=== PATIENT | female | born 1975 | race Caucasian/White ===

== ENCOUNTER 2021-03-18 12:26 | Outpatient (CLI) | payer OTHER, SELFPAY ==
--- NOTE | ~2021-03-18 | US_ITS ---
EXAMINATION: US pelvic complete w TV DATE: 03/18/2021 13:13 INDICATION: Excessive and frequent menstruation TECHNIQUE: Multiple transabdominal and endovaginal sonographic images of the pelvis were obtained. COMPARISON: None. FINDINGS: The uterus measures 8.5 x 4.5 x 6.2 cm. The endometrial complex measures 11 mm. The right o vary measures 3.5 x 2.5 x 2.4 cm. The left ovary measures 2.8 x 2.7 x 2.8 cm. There is normal vascula r flow in the ovaries. There is no free fluid in the pelvis. IMPRESSION: 1. No sonographic correlate for the patient's symptoms. Reviewed, dictated and finalized at location F. AIGN ASSOCIATE
== END 2021-03-18 12:27 | disposition home or self-care (01) ==
LOC: ANHIMG 12:34
PROVIDERS: PCP Internal Medicine; Visit Provider Obstetrics & Gynecology
DX: N92.1 Excessive and frequent menstruation with irregular cycle (principal)
CPT/HCPCS: 76830; 76856

== ENCOUNTER 2022-03-24 12:24 | Outpatient (CLI) | payer OTHER, SELFPAY ==
[2022-03-24 13:49] LABS: Hematocrit 39.7 % (37.0-47.0); Hemoglobin 12.8 g/dL (12.0-15.0); Mean Corpuscular HGB Conc 32.2 g/dl (32-36); Mean Corpuscular Hemoglobin 30.5 pg (26-34); Mean Corpuscular Volume 94.5 fl (80-100); Mean Platelet Volume 10.5 fl (7.4-10.4); Platelet Count Result 300 k/mm3 (150-375); Red Cell Distribution Width 14.9 % (11.5-14.5)
[2022-03-28 12:13] LABS: FSH 6.3 mIU/mL (***); LH 4.8 mIU/mL (***); Progesterone 0.7 ng/mL (***)
== END 2022-03-24 12:25 | disposition home or self-care (01) ==
LOC: ANHLAB 12:27
PROVIDERS: PCP Internal Medicine; Visit Provider Obstetrics & Gynecology
DX: N92.1 Excessive and frequent menstruation with irregular cycle (principal)
CPT/HCPCS: 36415; 83001; 83002; 84144; 85027

== ENCOUNTER 2022-05-14 01:49 | Day surgery (SDC) | payer OTHER, SELFPAY ==
[2022-05-03 12:59] VITALS: BMI 22.0
--- NOTE | 2022-05-03 13:04 | PC.NURSE ---
Report to the Outpatient Waiting Room, entrance under the green pavilion located off [facility], at time 0600 on date 05/14/22. Planned Procedure Time: 0730. Time changes happen often and if your time is changed the preop area will call you the afternoon before. - You and your visitor will be asked to self-screen and do not enter if you have any COVID symptoms. - Only one visitor is requested with a max of two and NO children visitors are allowed at this time. - The patient visitor may be requested to leave or wait in car when not with patient due to distancing restrictions. - A mask is optional within the hospital at this time. Patients may have clear liquids (water, carbonated beverages, clear teas, apple juice) until 3 hours prior to surgery with a maximum of 20 ounces. - No food from midnight until time of surgery Take the following medications with a SIP of water the morning of surgery: NONE DO NOT STOP ANY OF YOUR OTHER PRESCRIPTION MEDICATIONS PRIOR TO SURGERY EXCEPT THE FOLLOWING Medications to discontinue per physician: VITAMIN Date to take last dose: 05/10/22 Please no make-up, nail wolof, hairspray, perfume, deodorant, or body powder the day of surgery. No jewelry (including any body piercings) or valuables the day of surgery, leave them at home. Please take a shower or bath the night before, or the morning of, surgery with an antibacterial soap. Wear comfortable, loose fitting clothing. - Jewelry must be removed prior to entering the operating room. Rings and piercings that are not removed may be cut off. - The hospital will not accept responsibility for valuables. - Please leave all valuables, including medications, at home the day of surgery. If you are going home after surgery, a licensed drivers license examiner must drive you home. - NO public transportation without another adult if you receive anesthesia. - We recommend that an adult stay with you for 24 hours following discharge. - We also recommend that you do not drive, make important decision, drink alcoholic beverages, or take any drugs that were not prescribed by your health care provider for at least 24 hours after your discharge time. Follow any additional instructions given to you from your surgeon. If you or anyone in your household have experienced Covid symptoms in the past week, please notify your surgeon or the nurse liaison at the phone number below for possible testing. Telephone instructions given to PT - LARA GRANT and asked if any additional questions and then verbalized understanding. Patient advised to call surgeon office or pre surgery nurse liaison [phone] if any additional questions.
--- NOTE | 2022-05-13 13:53 | WPDANESEPPF ---
Anes - Initial Pre Proc Eval Procedure: Operation Date: 05/14/22 07:30 Proposed Procedures p Hysteroscopy, Dilation and Curettage, Sharita Endometrial Ablation with Possible Fibroid Removal - Ata Owens MD Date/Time: 05/13/22 13:53 Surgeon: Ata Owens MD Pre Op Diagnosis: abnormal uterine and vaginal bleeding Patient Data Age: 46 Gender: F Height: 1.73 m Weight: 65.8 kg Allergies Allergy/AdvReac Type Severity Reaction Status Date / Time No Known Allergies Allergy Verified 05/14/22 06:58 Home Medications Medication Instructions Recorded Confirmed Type multivitamin 1 tablet PO DAILY 03/10/21 05/14/22 History progesterone micronized 200 mg 200 mg PO QHS #30 caps 04/16/22 05/14/22 Rx capsule (Prometrium) Patient hx anesthesia problems: none Family hx anesthesia problems: none Results Review: All pre-operative results and documents have been reviewed as part of the pre-operative evaluation. FORMERLY [facility] Past Medical History Medical History Acid reflux Elective x1 Missed x2 Vaginal delivery x2 Surgical History Surgical History History of bilateral tubal ligation 2013 History of cholecystectomy 2008 History of dilation and curettage 2008 History of hernia repair 1990 History of laparoscopy 2008, exploratory [place] teeth extracted 2006 Family History Family History Grandparent Carcinoma of colon Family history of malignant neoplasm of breast Family history of malignant neoplasm of ovary, Onset Age: 80 Cerebrovascular accident Social History Social History Smoking packs per day: 1 Smoking cigarettes per day: 20.0 Years smoked: 10 Smoking pack-years: 10.00 Smoking status: Former smoker Tobacco type: cigarettes Smoking end date: 03/21/02 Alcohol intake: current Alcohol use details: 2/MONTH Substance use: never Substance use type: does not use Last use: age 19? Lack of Transportation: No Lack of Food: Never True Current Housing: I Have Housing Concerned About Future Housing: No Difficulty Paying Gas/Electric Bills: No Difficulty Paying for Meds: No Currently Unemployed: No Education: Master's Degree or Higher Living arrangements: with family Spiritual care concerns: No Agree to blood products: Yes Zehras - Richie Final PreProcedure Day of Procedure 05/13/22 13:53 Patient weight: normal Heart: regular rate and rhythm Lungs: clear to auscultation Neurological: alert and oriented Last oral intake: >/= 8 hours ASA classification: II Emergent: no Anesthetic plan: proceed Anesthesia type and monitoring: general GIVS and standard monitoring Results Review: All pre-operative results and documents have been reviewed as part of the pre-operative evaluation. Informed Consent: The patient's anesthetic plan and its attendant risks and benefits were discussed with the patient/family/POA. Questions were solicited and answers provided to the satisfaction of the patient/family/POA.
[2022-05-14 06:34] VITALS: BP 127/71; PULSE 84; RESP 16; TEMP 36.6; O2SAT 99
[2022-05-14] MEDS: LACTATED RINGERS 1,000 ML 30 ML IV CONT (06:47)
[2022-05-14] MEDS: ACETAMINOPHEN 500 MG TABLET 1000 MG PO (06:48)
--- NOTE | 2022-05-14 07:12 | PM.IMHP ---
H&P: HPI History of Present Illness Date/Time: 05/14/22 07:12 Chief Complaint: Heavy periods Narrative: Patient with history of heavy periods. Not resolved with hormonal contraception therapy. Endometrial biopsy normal. She has been given options of treatment and has opted for endometrial ablation, hysteroscopy, possible D and C possible removal of endometrial lesion if present. Review of Systems Review of Systems: All systems reviewed & are unremarkable except as noted in HPI and below Constitutional: Constitutional: Reports no additional constitutional complaints Eyes: Eyes: Reports no additional eye complaints Cardiovascular: Cardiovascular: Reports no additional cardiovascular complaints Respiratory: Respiratory: Reports no additional respiratory complaints Gastrointestinal: Gastrointestinal: Reports no additional gastrointestinal complaints Genitourinary: Genitourinary: Reports no additional female genitourinary complaints and Reports as per HPI Integumentary/Breasts: Skin/Breast: Reports system reviewed and no additional complaints, except as docu Neurologic: Reports system reviewed and no additional complaints, except as documented Psychiatric: Psychiatric: Reports no additional psychiatric complaints Hematologic/Lymphatic: Hematologic/Lymphatic: Reports no additional hematologic/lymphatic complaints [facility] Past Medical History Medical History Acid reflux Elective x1 Missed x2 Vaginal delivery x2 Surgical History Surgical History History of bilateral tubal ligation 2013 History of cholecystectomy 2008 History of dilation and curettage 2009 History of hernia repair 1990 History of laparoscopy 2007, exploratory [place] teeth extracted 2006 Family History Family History Grandparent Carcinoma of colon Family history of malignant neoplasm of breast Family history of malignant neoplasm of ovary, Onset Age: 80 Cerebrovascular accident Social History Social History Smoking packs per day: 1 Smoking cigarettes per day: 20.0 Years smoked: 10 Smoking pack-years: 10.00 Smoking status: Former smoker Tobacco type: cigarettes Smoking end date: 03/21/02 Alcohol intake: current Alcohol use details: 2/MONTH Substance use: never Substance use type: does not use Last use: age 19? Lack of Transportation: No Lack of Food: Never True Current Housing: I Have Housing Concerned About Future Housing: No Difficulty Paying Gas/Electric Bills: No Difficulty Paying for Meds: No Currently Unemployed: No Education: Master's Degree or Higher Living arrangements: with family Spiritual care concerns: No Agree to blood products: Yes Meds Home Medications and Allergies Home Medications Medication Instructions Recorded Confirmed Type multivitamin 1 tablet PO DAILY 03/10/21 05/14/22 History progesterone micronized 200 mg 200 mg PO QHS #30 caps 04/16/22 05/14/22 Rx capsule (Prometrium) Allergies Allergy/AdvReac Type Severity Reaction Status Date / Time No Known Allergies Allergy Verified 05/14/22 06:58 Vital Signs Vital Signs - 24 hr 05/14/22 06:34 Temperature 97.9 F Pulse Rate 84 Respiratory Rate 16 Blood Pressure 127/71 Pulse Oximetry 99 Oxygen Delivery Room Air Exam Const: General: comfortable and no acute distress Orientation/consciousness: oriented to person, oriented to place and oriented to time Eyes: General: appearance normal, both eyes and all related structures Neck: Neck: normal visual inspection Resp: Effort & Inspection: normal respiratory effort Auscultation: clear to auscultation bilaterally Cardio: Rate: regular rate Rhythm: regular rhythm GI: Inspe
--- NOTE | 2022-05-14 07:15 | WPDHPUPDATE1 ---
History and Physical Update Update Date/Time: 05/14/22 07:15 History and Physical has been reviewed, including an updated exam of the patient. There are NO changes in the patient's condition. Risks, benefits, and alternatives have been discussed and questions answered. Patient agrees to proceed with procedure.
[2022-05-14] MEDS: ceFAZolin 2 GM/D5W 50 ML 2 GM/50 ML BAG IVPB (07:24)
[2022-05-14] MEDS: LIDOCAINE 1% BUFFERED WITH 8.4% SODIUM BICARB 1 ML SYRINGE 10 ML INFILTRATE (07:53)
[2022-05-14] MEDS: KETOROLAC 15 MG/ML VIAL (*BKC) IV PUSH (07:57)
[2022-05-14 08:05] VITALS: BP 126/81; PULSE 89; RESP 15; O2SAT 99
--- NOTE | 2022-05-14 08:12 | W.PM.PROC2 ---
Procedure Note - Detailed Date of Procedure 05/14/22 Pre-op Diagnosis abnormal uterine and vaginal bleeding Post-op Diagnosis Other (Endometrial cavity lesion) Procedure Performed 1.endometrial ablation with Sharita. 2.removal of endometrial cavity lesion and 3.diagnostic hysteroscopy and dilation and curettage2. Surgeon Ata Owens MD Anesthesia MAC and Local Indications Menometrorrhagia Findings Uterus sound to 9 cm cervical length 4.5 cm uterine cavity length 4.5 cm there was an approximately 1 cm polyp like structure at the lower uterine cavity which was removed with the MyoSure. The rest of the cavity appeared normal mildly proliferative tissue good eschar noted after the ablation. Description of Procedure After informed consent was obtained patient was taken to the operating room and adequate IV sedation was administered. Attention was turned to the vagina. Speculum was inserted. Single-tooth tenaculum placed on the anterior lip of the cervix. The uterus was sounded to 9 cm. The cervix was dilated to an 8 Shaw dilator. The cervical length was 4.5. The hysteroscope was inserted into the cavity. The findings were as described. The myosure apparatus was inserted and lesion removed. The Sharita ablation instrument was inserted into the cavity. Cavity assessment was performed and confirmed intact. The ablation was enabled. After 120 seconds the Sharita stopped. The ablation instrument was removed. The hysteroscope was inserted and there was noted to be good eschar with the cavity. The hysteroscope was removed the single-tooth tenaculum was removed hemostasis was noted at the tenaculum site. Sponge count correct. The patient taken to recovery in stable condition. Estimated Blood Loss 5 Drains No Packing No Pathology Yes ( Endometrial curetting with MyoSure shavings) Complications No immediate complications Condition Stable Disposition Same day [facility] Billing Surgery - Charge Forward: Surgery Billing
[2022-05-14 08:35] VITALS: BP 110/59; PULSE 75; O2SAT 100
[2022-05-14] MEDS: fentaNYL CITRATE INJ (*CRX) 100 MCG/2 ML VIAL 25 MCG IV PUSH ×2 (08:49→08:52)
[2022-05-14] MEDS: oxyCODONE HCL (*CRX) 5 MG TAB IR PO (09:01)
[2022-05-14 09:05] VITALS: BP 111/73; PULSE 76
== END 2022-05-14 09:32 | disposition home or self-care (01) ==
PROVIDERS: PCP Internal Medicine; Visit Provider Obstetrics & Gynecology
PROC: 0U5B8ZZ Destruction of Endometrium, Via Natural or Artificial Opening Endoscopic (ICD-10-PCS; CPT 58563; principal; 2022-05-14 07:30)
DX: N92.1 Excessive and frequent menstruation with irregular cycle (principal); N84.0 Polyp of corpus uteri; Z87.891 Personal history of nicotine dependence
CPT/HCPCS: 58563; 88305; A9270; J0690; J1885; J2250; J2405; J2704; J3010; J7030; J7120

== ENCOUNTER 2024-08-25 19:21 | Emergency (ER) | payer OTHER, SELFPAY ==
--- OUTSIDE RECORDS SUMMARY | 2024-08-25 19:23 | XMS_ITS | Clinical Summary ---
Author Organization [facility] Address [address] [place] [address] Care Team Providers Care School Office Manager Name Role Phone Katia Zamora MD Primary Care Provider [phone]- [phone] Allergies No known active allergies Medications No known medications Active Problems No known active problems Surgical History Surgery Date Site/Laterality Comments BREAST BIOPSY Family History Medical History Relation Name Comments Breast cancer Paternal Grandmother Relation Name Status Comments Paternal Grandmother Social History Tobacco Use Types Packs/Day Years Used Date Smoking Tobacco: Never Assessed Comments No Sex and Gender Information Value Date Recorded Sex Assigned at Not on file Legal Sex Female 7:16 AM GENERAL INTERNIST AND PHYSICIAN LEADER Gender Identity Not on file Sexual Orientation Not on file Obstetrics History Para Term AB IAB SAB Ectopic Multiple Livin g Live Births 5 2 2 Date Outcome GA Total Labor Labor/2nd/3rd Weight Sex Type Anes PTL Supriya A1 A5 Name Clin Term Term Last Filed Vital Signs Vital Sign Reading Time Taken Comments Blood Pressure - - Pulse - - Temperature - - Respiratory Rate - - Oxygen Saturation - - Inhaled Oxygen Concentration - - Weight 65.8 kg (145 lb) 02/26/2023 9:33 AM GENERAL INTERNIST AND PHYSICIAN LEADER Height 172.7 cm (5' 8) 02/26/2023 9:33 AM GENERAL INTERNIST AND PHYSICIAN LEADER Body Mass Index 22.05 02/26/2023 9:33 AM GENERAL INTERNIST AND PHYSICIAN LEADER Plan of Treatment Health Maintenance Due Date Last Done Comments Cervical Cancer Screening 1976 Colon Cancer Screening-Colonoscopy 1976 Depression Screening 1976 Hepatitis C Screening 1976 DTaP/Tdap/Td Vaccine (1 - Tdap) 06/08/1987 Hepatitis B Screening 1994 Regular Well Visit/Exam 18-64 1994 Covid-19 Vaccine (3 2023-2 5 season) 2023 06/10/2020, 05/13/2020 Breast Cancer Screening-Mammogram 02/27/2024 02/26/2023 Influenza Vaccine (Season Ended) 2024 01/17/2023 Pneumococcal vaccine <65 Aged Out No longer eligible based on patient's age to complete this topic Procedures Procedure Name Priority Date/Time Associated Diagnosis Comments SCREENING MAMMOGRAM BILATERAL W JONATHAN Schedule Routine, Read Routine (OP Routine) 02/26/2023 9:39 AM GENERAL INTERNIST AND PHYSICIAN LEADER Encounter for screening mammogram for malignant neoplasm of breast from Last 3 Months or Most Recently Relevant to Health Maintenance Results * Screening Mammogram Bilateral W Jonathan (02/26/2023 9:39 AM GENERAL INTERNIST AND PHYSICIAN LEADER) Anatomical Region Laterality Modality Breast Bilateral Mammography 03/01/2023 11:3 5 AM GENERAL INTERNIST AND PHYSICIAN LEADER Impressions 03/01/2023 11:35 AM GENERAL INTERNIST AND PHYSICIAN LEADER There is no mammographic evidence of malignancy. A 1 year screening mammogram is recommended. BI-RADS: 1 - Negative. The patient has been or will be contacted. The patient will be entered into a reminder system with a target due date of 1 year for her next mammogram. Electronically signed by: Megan Tucker M.D. Narrative 03/01/2023 11:35 AM GENERAL INTERNIST AND PHYSICIAN LEADER EXAMINATION: SCREENING MAMMOGRAM BILATERAL W JONATHAN ORDERING HEALTHCARE PROVIDER: ATA CHARLES HISTORY: Routine screening mammography. COMPARISON: 01/24/2009, 01/14/2009, 01/06/2009 TECHNIQUE: CC and MLO views of the bilateral breasts were obtained with digital technique using breast tomosynthesis with C view. Computer aided detection was utilized. FINDINGS: DENSITY: The tissue of the bilateral breasts is heterogeneously dense, which may obscure small masses. BREASTS: There are no suspicious masses, suspicious calcifications, or other suspicious findings in either breast. There has been no suspicious interval change. us Ata Charles MD IMG MAMMO PROCEDURES Final Result from Last 3 Months or Most Recently Relevant to Health Maintenance Insurance [facility] Care Teams School Office Manager Relationship Specialty Start Date End Date Katia Zamora MD PCP - General Internal Medicine 01/11/23
--- OUTSIDE RECORDS SUMMARY | 2024-08-25 19:23 | XMS_ITS | Continuity of Care Document ---
Author Organization [facility] Address [address] [place] [address] Phone Care Team Providers Care Pound Keeper Name Role Phone Unavailable Unavailable Unavailable Advance Directives Directive Yes / No Effective Date File Name No Information Encounters Encounter Description Practice Location Reason(s) For Visit Diagnoses Date Provider Providers Copied on Encounter [facility], [address], [place], [place], [id number], [place] tel:[phone] [facility] No Information No Information Referring Provider: NESHA CHARLES, [address] [place] [address],[place], [address]. tel:[phone] Family History Family Member Type Diagnosis Age At Onset No Information Payers Payer name Insurance type Covered alliance party ID Authoriza tion(s) R PPO [id number] Social History Type Description Quantity Date Captured Comments Sex Female Smoking Status No Information Chief Complaint And Reason For Visit No Information History Of Present Illness Encounter Date Complaint History Of Prese nt Illness No Information Instructions Date Instruction Additional Infor mation No Information Assessments Type Assessment Date No Information
--- OUTSIDE RECORDS SUMMARY | 2024-08-25 19:23 | XMS_ITS | Clinical Summary ---
Author Organization [facility] [address] [facility] [address] [place] [address] Phone Care Team Providers Care Senior Manager Mmcoe Name Role Phone Unavailable Primary Care Provider Unavailabl e Social History Tobacco Use Types Packs/Day Years Used Date Smoking Tobacco: Never Assessed Comments Unknown Sex and Gender Information Value Date Recorded Sex Assigned at Not on file Legal Sex Female 6:11 AM PROOF COIN COLLECTOR Gender Identity Not on file Sexual Orientation Not on file Plan of Treatment Health Maintenance Due Date Last Done Comments DTAP/TDAP/TD VACCINES (1 - Tdap) 06/08/1995 HEPATITIS B VACCINES (1 of 3 - 19+ 3-dose series) 05/20 HPV/Cotest (21-29) 1997 CERVICAL CANCER SCREENING 2006 HPV/Cotest (30-65) 2006 PAP SMEAR 2006 BREAST CANCER SCREENING 2016 COLORECTAL SCREENING 2021 Colorectal Cancer Screening 2021 FIT-DNA Q 3 years 2021 FIT/FOBT Q 1 year 2021 Flex Sig/CT Colonography Q 5 years 2021 INFLUENZA VACCINE (#1) 2023 Insurance [facility] OPTIONS PPO [id number]
--- OUTSIDE RECORDS SUMMARY | 2024-08-25 19:23 | XMS_ITS | Referral Summary ---
Author Organization [facility] Address [address] [place] [address] Care Team Providers Care Wax Coating Machine Tender Name Role Phone Katia Zamora MD Primary Care Provider [phone]- [phone] Allergies No known active allergies Medications No known medications Active Problems No known active problems Social History Tobacco Use Types Packs/Day Years Used Date Smoking Tobacco: Never Assessed Comments No Sex and Gender Information Value Date Recorded Sex Assigned at Not on file Legal Sex Female 7:16 AM PRODUCTION EDITOR Gender Identity Not on file Sexual Orientation Not on file Last Filed Vital Signs Vital Sign Reading Time Taken Comments Blood Pressure - - Pulse - - Temperature - - Respiratory Rate - - Oxygen Saturation - - Inhaled Oxygen Concentration - - Weight 65.8 kg (145 lb) 02/26/2023 9:33 AM PRODUCTION EDITOR Height 172.7 cm (5' 8) 02/26/2023 9:33 AM PRODUCTION EDITOR Body Mass Index 22.05 02/26/2023 9:33 AM PRODUCTION EDITOR Plan of Treatment Not on file Procedures Procedure Name Priority Date/Time Associated Diagnosis Comments SCREENING MAMMOGRAM BILATERAL W JONATHAN Schedule Routine, Read Routine (OP Routine) 02/26/2023 9:39 AM PRODUCTION EDITOR Encounter for screening mammogram for malignant neoplasm of breast from Last 3 Months or Most Recently Relevant to Health Maintenance Results * Screening Mammogram Bilateral W Jonathan (02/26/2023 9:39 AM PRODUCTION EDITOR) Anatomical Region Laterality Modality Breast Bilateral Mammography 03/01/2023 11:3 5 AM PRODUCTION EDITOR Impressions 03/01/2023 11:35 AM PRODUCTION EDITOR There is no mammographic evidence of malignancy. A 1 year screening mammogram is recommended. BI-RADS: 1 - Negative. The patient has been or will be contacted. The patient will be entered into a reminder system with a target due date of 1 year for her next mammogram. Electronically signed by: Megan Tucker M.D. Narrative 03/01/2023 11:35 AM PRODUCTION EDITOR EXAMINATION: SCREENING MAMMOGRAM BILATERAL W JONATHAN ORDERING [...] Most Recently Relevant to Health Maintenance Insurance [facility] H[facility]/PPO Address: [facility] [address] [place] [address] Care Teams Wax Coating Machine Tender Relationship Specialty Start Date End Date Katia Zamora MD PCP - General Internal Medicine 01/11/23
--- OUTSIDE RECORDS SUMMARY | 2024-08-25 19:27 | XMS_ITS | Continuity of Care Document ---
Author Organization [facility] Address [address] [place] [address] Phone Care Team Providers Care Wood Heel Finisher Name Role Phone Unavailable Unavailable Unavailable Advance Directives Directive Yes / No Effective Date File Name No Information Encounters Encounter Description Practice Location Reason(s) For Visit Diagnoses Date Provider Providers Copied on Encounter [facility], [address] [facility], [place], [place], [id number], [place] tel:[phone] [facility] No Information No Information Referring Provider: NESHA CHARLES, [address] [place] [address],[place], [address]. tel:[phone] Family History Family Member Type Diagnosis Age At Onset No Information Payers Payer name Insurance type Covered republican ID Authoriza tion(s) R PPO [id number] Social History Type Description Quantity Date Captured Comments Sex Female Smoking Status No Information Chief Complaint And Reason For Visit No Information History Of Present Illness Encounter Date Complaint History Of Prese nt Illness No Information Instructions Date Instruction Additional Infor mation No Information Assessments Type Assessment Date No Information
[2024-08-25 19:39] VITALS: BP 117/75; PULSE 96; RESP 16; TEMP 36.6; O2SAT 97
[2024-08-25] MEDS: LIDOCAINE 1% LOCAL INJ 2 ML AMPUL 8 ML INFILTRATE (19:53)
[2024-08-25] MEDS: HYDROGEN PEROXIDE 3% TOPICAL SOLUTION 118 ML BOTTLE 80 ML IRRIGATION (20:08)
--- NOTE | 2024-08-25 20:43 | ED.GENADULT ---
HPI - General Adult General Chief complaint: Wound/Laceration Stated complaint: Laceration to Left Hand Source: patient Mode of arrival: ambulatory Limitations: no limitations History of Present Illness HPI narrative: Patient presents for evaluation of laceration to left hand. 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 She attempted to intervene. In the process of doing so, she sustained a laceration. She is not certain whether it was related to a bite or scratch. She denies considerable pain. She has a burning sensation in the area. She is not diabetic. She is right hand dominant. Last tetanus about two years ago. Related Data Home Medications ?Medication ?Instructions ?Recorded ?Confirmed ?Last Taken ?Type Zyrtec 08/25/24 Unknown History escitalopram oxalate 20 mg tablet mg 08/25/24 Unknown History Allergies Allergy/AdvReac Type Severity Reaction Status Date / Time No Known Allergies Allergy Verified 08/25/24 19:38 Review of Systems Review of Systems: CONSTITUTIONAL: Denies fever, chills, or sweats. EYES: Denies visual changes, redness, or discharge. ENT: Denies rhinorrhea, congestion, sore throat, or otalgia. CARDIOVASCULAR: Denies chest pain, palpitations, or edema. RESPIRATORY: Denies cough or dyspnea. GASTROINTESTINAL: Denies abdominal pain, nausea, vomiting, or diarrhea. GENITOURINARY: Denies dysuria or hematuria. SKIN: Reports laceration of the left hand MUSCULOSKELETAL: Denies back pain, joint pain, or myalgia. NEUROLOGIC: Denies headache, numbness, dizziness, or weakness. PSYCHIATRIC: Denies anxiety or depression. [facility] Past Medical History Medical History Elective x1 Missed x2 Vaginal delivery x2 Acid reflux Surgical History Surgical History [place] teeth extracted 2006 History of bilateral tubal ligation 2013 History of hernia repair 1991 History of cholecystectomy 2009 History of laparoscopy 2008, exploratory History of dilation and curettage 2009 Family History Family History Grandparent Carcinoma of colon Family history of malignant neoplasm of breast Family history of malignant neoplasm of ovary, Onset Age: 81 Cerebrovascular accident Social History Social History Smoking packs per day: 1 Smoking cigarettes per day: 20.0 Years smoked: 10 Smoking pack-years: 10.00 Smoking status: Former smoker Tobacco type: cigarettes Smoking end date: 03/21/02 Alcohol intake: current Alcohol use details: 2/MONTH Substance use: never Substance use type: does not use Last use: age 19? Lack of Transportation: No Lack of Food: Never True Current Housing: I Have Housing Concerned About Future Housing: No Difficulty Paying Gas/Electric Bills: No Difficulty Paying for Meds: No Currently Unemployed: No Education: Master's Degree or Higher Living arrangements: with family Spiritual care concerns: No Agree to blood products: Yes Exam Narrative: GENERAL: Well-appearing, well-nourished, and in no acute distress. HEAD: Normocephalic, atraumatic. EYES: PERRLA and EOMI. ENT: Nares clear, no rhinorrhea or epistaxis. Mucous membranes moist. Oropharynx without tonsillar hypertrophy exudate or other lesions. Bilateral TMs pearly zacarias nonbulging NECK: Supple. No adenopathy or masses. No carotid bruits or JVD CHEST: Clear to auscultation. No respiratory distress. No wheezes rales or rhonchi HEART: Regular rate and rhythm. No murmur heard. Normal peripheral pulses. ABDOMEN: Soft, nontender, nondistended, normal active bowel sounds. EXTREMITIES: Normal range of motion. No edema. SKIN: Approximately 2.5 cm linear laceration to the dorsal aspect of the left hand between the 3rd and 4th digits. NEURO: No focal deficits. Alert and oriented x3. PSYCH: Normal mood and affect. Course Course Emergency Course: This is a 49-year-old female who presented for evaluation of laceration to the left hand. Wound was closed with 4 sutures. Patient tolerated well. Wound had been thoroughly irrigated prior to the time of closure. She states she does not tolerate amoxicillin so will discharge with doxycycline and Flagyl. Advised on wound care. Follow-up with primary provider. Go to the ER for worsening symptoms. Patient in agreement with plan of care. Level of Care: Express Care Visit Vital Signs Vital signs: Vital Signs Temperature 36.6 C 08/25/24 19:39 Pulse Rate 96 08/25/24 19:39 Respiratory Rate 16 08/25/24 19:39 Blood Pressure 117/75 08/25/24 19:39 Pulse Oximetry 97 08/25/24 19:39 Oxygen Delivery Room Air 08/25/24 19:39 Temperature 36.6 C 08/25/24 19:39 Pulse Rate 96 08/25/24 19:39 Respiratory Rate 16 08/25/24 19:39 Blood Pressure 117/75 08/25/24 19:39 Pulse Oximetry 97 08/25/24 19:39 Oxygen Delivery Room Air 08/25/24 19:39 Procedures Laceration Laceration 1: Date: 08/25/24 Time: 20:46 Site: hand Description: linear Local Anesthetic: lidocaine 1% Amount of anesthesia used (mL): 6 Pre-repair: wound explored and irrigated extensively ====== Skin Level ====== Skin layer closed with: nylon Size (cm): 4-0 and 5-0 Number of sutures: 4 ====== Subcutaneous Layer ====== ====== Muscle Layer ====== ====== Tendon Layer ====== Medical Decision Making Vital Signs Vital Signs: Vital Signs Temperature 36.6 C 08/25/24 19:39 Pulse Rate 96 08/25/24 19:39 Respiratory Rate 16 08/25/24 19:39 Blood Pressure 117/75 08/25/24 19:39 Pulse Oximetry 97 08/25/24 19:39 Oxygen Delivery Room Air 08/25/24 19:39 Temperature 36.6 C 08/25/24 19:39 Pulse Rate 96 08/25/24 19:39 Respiratory Rate 16 08/25/24 19:39 Blood Pressure 117/75 08/25/24 19:39 Pulse Oximetry 97 08/25/24 19:39 Oxygen Delivery Room Air 08/25/24 19:39 Discharge Plan Discharge Clinical Impression: Laceration of hand, left Patient Disposition: Home Condition: Stable Instructions: Antibiotic Form, Animal Bite (ED), Laceration (ED) Patient Language: [place]az[place] Prescriptions: New doxycycline hyclate 100 mg capsule 100 mg PO BID Qty: 20 0RF metronidazole 500 mg tablet 500 mg PO Q8H Qty: 30 0RF No Action escitalopram oxalate 20 mg tablet Zyrtec Follow-up/Referrals: Gladys Johnson DO [Physician] - Time of Disposition: 20:41
== END 2024-08-25 20:48 | disposition home or self-care (01) ==
PROVIDERS: Emergency Provider Nurse Practitioner
DX: S61.412A Laceration without foreign body of left hand, initial encounter (principal); W54.8XXA Other contact with dog, initial encounter; Z87.891 Personal history of nicotine dependence
CPT/HCPCS: 12001; 99213; A9270; G0463; J2003